=== PATIENT | female | born 1965 | race Caucasian/White ===

== ENCOUNTER 2017-02-26 06:33 | Emergency (ER) | payer MEDICAID ==
[~2017-02-26] VITALS: Ht 157.5 cm; Wt 73.0 kg
[~2017-02-26 06:33] MED LIST: ASPI-986 PO; CLOP75TA16 PO; DULO60CA44 PO; GABA-531 PO; INSU100C6 SQ; METO-539 PO; ZOLP10TA2 PO
[2017-02-26 06:37] VITALS: BP 123/57
[2017-02-26] MEDS ORDERED: SODIUM CHLORIDE 0.9% 1,000 ML IV ONE (07:05)
== END 2017-02-26 09:12 | disposition left against medical advice (07) ==
LOC: ER 06:33
DX: E11.65 Type 2 diabetes mellitus with hyperglycemia (principal); I11.9 Hypertensive heart disease without heart failure; F17.200 Nicotine dependence, unspecified, uncomplicated; Z98.61 Coronary angioplasty status; Z79.4 Long term (current) use of insulin; Z79.82 Long term (current) use of aspirin
CPT/HCPCS: 82962; 99283; J7030

== ENCOUNTER 2017-03-05 22:22 | Inpatient (IN) | payer MEDICAID ==
[~2017-03-05] VITALS: Ht 157.5 cm; Wt 83.9 kg
[2017-03-06] MEDS ORDERED: ALBUTEROL (0.083%) 2.5MG/3ML NEB HHN STA (00:47)
[2017-03-06] MEDS ORDERED: KETOROLAC 30MG/ML VIAL IV STA (00:47)
[2017-03-06] MEDS ORDERED: IPRATROPIUM BROMIDE (0.02%) 0.5MG/2.5ML NEB HHN STA (00:47)
[2017-03-06 01:12] LABS: BASOPHILS % 0.2 % (0.0-2.0); EOSINOPHILS % 3.4 % (0.0-5.0); HEMATOCRIT. 41.4 % (36.0-48.0); HEMOGLOBIN. 13.5 g/dL (12.0-16.0); LYMPHOCYTES % 25.2 % (20.0-50.0); MEAN CORPUSCULAR HEMOGLOBIN 28.8 pg (28.0-32.0); MEAN CORPUSCULAR VOLUME 88.2 fL (81.0-99.0); MEAN PLATELET VOLUME 8.3 fl (7.4-10.4); MONOCYTES % 9.5 % (2.0-8.0); NEUTROPHILS % 61.7 % (40.0-76.0); PLATELET 513 x1000/uL (130-400); RED CELL DISTRIBUTION WIDTH 13.6 % (11.6-14.6)
[2017-03-06] MEDS ORDERED: CEFTRIAXONE 1 G PREMIX 50 ML IV ONE (01:15)
[2017-03-06 01:16] LABS: INR 1.1; PROTHROMBIN TIME 11.1 sec (9.4-11.6)
[2017-03-06 01:25] LABS: CARBON DIOXIDE 28 mEq/L (21-32); CHLORIDE 102 mEq/L (98-107); TROPONIN I < 0.02 ng/mL (0.00-0.04)
[2017-03-06] MEDS: AZITHROMYCIN 500 MG in DEXT 5% WATER 250 ML IV SCH ×2 (01:43→04:00)
[2017-03-06 08:06] LABS: CLARITY URINE CLEAR (CLEAR); COLOR URINE YELLOW (YELLOW); KETONES URINE NEGATIVE (NEGATIVE); LEUKOCYTE ESTERASE URINE TRACE (NEGATIVE); NITRITE URINE NEGATIVE (NEGATIVE); OCCULT BLOOD URINE TRACE (NEGATIVE); PROTEIN URINE NEGATIVE (NEGATIVE); SPECIFIC GRAVITY URINE 1.017 (1.005-1.030); UROBILINOGEN URINE 0.2 E.U./dL (0.2-1.0)
[2017-03-06] MEDS ORDERED: ONDANSETRON HCL 4MG/2ML VIAL IV PRN (11:30)
[2017-03-06] MEDS ORDERED: CLONIDINE 0.1MG TABLET PO PRN (11:30)
[2017-03-06] MEDS ORDERED: IPRATROPIUM/ALBUTEROL 0.5-3(2.5)MG/3ML NEB INH PRN (11:30)
[2017-03-06] MEDS ORDERED: DOCUSATE SODIUM 100MG CAPSULE PO PRN (11:30)
[2017-03-06] MEDS ORDERED: MAGNESIUM/ALUMINUM HYDROXIDE/SIMETHICONE 30ML UDC PO PRN (11:30)
[2017-03-06] MEDS ORDERED: IOHEXOL-300 100 ML BOTTLE ONE (14:16)
[2017-03-06 14:53] LABS: CARBON DIOXIDE 29 mEq/L (21-32); CHLORIDE 102 mEq/L (98-107); CREATINE KINASE 74 IU/L (26-192); CREATINE KINASE MB FRACTION 2.1 ng/mL (0.5-3.6); TROPONIN I < 0.02 ng/mL (0.00-0.04)
[2017-03-06 15:25] VITALS: BP 119/68
[2017-03-06] MEDS ORDERED: DEXTROSE 50% WATER 50ML SYRINGE IV PRN ×2 (15:30→19:45)
[2017-03-06 16:00] VITALS: BP 119/68
[2017-03-06] MEDS ORDERED: ENOXAPARIN 40MG/0.4ML SYR SUBCUT SCH (16:00)
[2017-03-06] MEDS: AMLODIPINE 2.5MG TABLET PO SCH ×2 (16:00→21:00)
[2017-03-06] MEDS ORDERED: ROCEPHIN IVPB XX SCH (16:15)
[2017-03-06] MEDS ORDERED: BLOOD SUGAR DIAGNOSTIC STRIP TEST SCH (17:00)
[2017-03-06] MEDS ORDERED: INSULIN LISPRO 100 UNITS/ML SUBCUT SCH (17:40)
[2017-03-06] MEDS: ACETAMINOPHEN 325MG TABLET PO PRN (18:28)
[2017-03-06] MEDS ORDERED: INSULIN LISPRO 100 UNITS/ML SUBCUT NR (18:45)
[2017-03-06] MEDS ORDERED: INSULIN REGULAR (HUMULIN R) 300UNITS/3ML SUBCUT NR (19:00)
[2017-03-06 20:00] VITALS: BP 98/67
[2017-03-06] MEDS: BLOOD SUGAR DIAGNOSTIC STRIP TEST SCH (20:35)
[2017-03-06] MEDS: ZOLPIDEM TARTRATE 5MG TABLET PO SCH (22:09)
[2017-03-06] MEDS: INSULIN LISPRO 100 UNITS/ML SUBCUT SCH (22:11)
[2017-03-06 23:31] LABS: CREATINE KINASE 94 IU/L (26-192); CREATINE KINASE MB FRACTION 2.5 ng/mL (0.5-3.6); TROPONIN I < 0.02 ng/mL (0.00-0.04)
[2017-03-07] VITALS: BP 124/59
[2017-03-07 04:00] VITALS: BP 123/67
[2017-03-07] MEDS: AZITHROMYCIN 500 MG TABLET PO SCH (05:38)
[2017-03-07] MEDS: HYDROCODONE/ACETAMINOPHEN 5/325MG TABLET PO PRN ×3 (05:48→17:09)
[2017-03-07] MEDS: BLOOD SUGAR DIAGNOSTIC STRIP TEST SCH ×4 (06:15→21:34)
[2017-03-07] MEDS: INSULIN LISPRO 100 UNITS/ML SUBCUT SCH ×4 (06:36→21:36)
[2017-03-07 07:15] LABS: BASOPHILS % 1.1 % (0.0-2.0); EOSINOPHILS % 6.3 % (0.0-5.0); HEMATOCRIT. 39.6 % (36.0-48.0); HEMOGLOBIN. 13.2 g/dL (12.0-16.0); LYMPHOCYTES % 25.3 % (20.0-50.0); MEAN CORPUSCULAR HEMOGLOBIN 29.2 pg (28.0-32.0); MEAN CORPUSCULAR VOLUME 87.9 fL (81.0-99.0); MEAN PLATELET VOLUME 8.6 fl (7.4-10.4); MONOCYTES % 8.3 % (2.0-8.0); PLATELET 462 x1000/uL (130-400); RED BLOOD CELL COUNT 4.51 mill/uL (4.2-5.4); RED CELL DISTRIBUTION WIDTH 13.4 % (11.6-14.6)
[2017-03-07 08:00] VITALS: BP 128/70
[2017-03-07 08:38] LABS: HDL CHOLESTEROL 27 mg/dL (40-59); LDL CHOLESTEROL 89 mg/dL (5-100)
[2017-03-07] MEDS: ACETAMINOPHEN 325MG TABLET PO PRN (08:49)
[2017-03-07] MEDS: AMLODIPINE 2.5MG TABLET PO SCH ×2 (08:50→21:34)
[2017-03-07] MEDS ORDERED: ASPIRIN 81MG EC TABLET PO SCH (09:00)
[2017-03-07] MEDS ORDERED: CEFTRIAXONE 2 G in DEXTROSE 5% WATER 50 ML IV SCH (09:00)
[2017-03-07 11:03] LABS: *AMPHETAMINES SCREEN URINE NEGATIVE (NEGATIVE); *BARBITURATES SCREEN URINE NEGATIVE (NEGATIVE); *BENZODIAZEPINES SCREEN URINE NEGATIVE (NEGATIVE); *COCAINE SCREEN URINE NEGATIVE (NEGATIVE); CANNABINOID URINE SCREEN NEGATIVE (NEGATIVE); METHADONE URINE SCREEN NEGATIVE (NEGATIVE); OPIATES URINE SCREEN NEGATIVE (NEGATIVE); PHENCYCLIDINE URINE SCREEN NEGATIVE (NEGATIVE)
[2017-03-07 12:00] VITALS: BP 145/75
[2017-03-07] MEDS ORDERED: IPRATROPIUM/ALBUTEROL 0.5-3(2.5)MG/3ML NEB HHN PRN (13:15)
[2017-03-07 13:48] LABS: BG BASE EXCESS 1.8 mmol/L (-2.0-2.0); BG CARBOXYHEMOGLOBIN 1.2 % (0.5-1.5); BG DEOXYHEMOGLOBIN 4.6 % (0.0-5.0); BG FRACTION INSPIRED OXYGEN 21; BG HCO3 ACT 25.6 mmol/L (22.0-26.0); BG METHEMOGLOBIN 0.1 % (0.0-1.5); BG OXYGEN SATURATION 95.3 % (92.0-98.5); BG OXYHEMOGLOBIN 94.1 % (94.0-97.0); BG PCO2 37.4 mmHg (35.0-45.0); BG PH 7.453 (7.350-7.450); BG PO2 75.5 mmHg (75.0-100.0); BG SAMPLE SITE LEFT BRACHIAL; BG TOTAL HEMOGLOBIN 13.6 g/dL (12.0-18.0); BG VENT MODE ROOM AIR
[2017-03-07] MEDS: NICOTINE 14MG PATCH TD SCH (15:00)
[2017-03-07 16:00] VITALS: BP 126/67
[2017-03-07 20:00] VITALS: BP 135/71
[2017-03-07] MEDS ORDERED: INSULIN REGULAR (HUMULIN R) 300UNITS/3ML SUBCUT ONE (21:15)
[2017-03-07] MEDS ORDERED: INSULIN LISPRO 100 UNITS/ML SUBCUT SCH (21:24)
[2017-03-07] MEDS: ZOLPIDEM TARTRATE 5MG TABLET PO SCH (21:34)
[2017-03-07] MEDS: IPRATROPIUM/ALBUTEROL 0.5-3(2.5)MG/3ML NEB INH SCH (21:43)
[2017-03-07] MEDS ORDERED: INSULIN GLARGINE UD 100 UNITS/ML SYR SUBCUT SCH (22:00)
[2017-03-07] MEDS ORDERED: INSULIN DETEMIR UD 100 UNITS/ML SYR SUBCUT SCH (22:00)
[2017-03-08] VITALS: BP 153/83
[2017-03-08] MEDS: ACETAMINOPHEN 325MG TABLET PO PRN (02:09)
[2017-03-08] MEDS: IPRATROPIUM/ALBUTEROL 0.5-3(2.5)MG/3ML NEB INH SCH ×3 (03:01→12:58)
[2017-03-08 04:00] VITALS: BP 124/63
[2017-03-08] MEDS: BLOOD SUGAR DIAGNOSTIC STRIP TEST SCH ×2 (06:35→13:00)
[2017-03-08] MEDS: AZITHROMYCIN 500 MG TABLET PO SCH (06:35)
[2017-03-08 07:01] LABS: BASOPHILS % 0.8 % (0.0-2.0); EOSINOPHILS % 5.1 % (0.0-5.0); HEMATOCRIT. 39.3 % (36.0-48.0); LYMPHOCYTES % 28.8 % (20.0-50.0); MEAN CORPUSCULAR HEMOGLOBIN 29.1 pg (28.0-32.0); MEAN CORPUSCULAR VOLUME 88.1 fL (81.0-99.0); MEAN PLATELET VOLUME 8.7 fl (7.4-10.4); MONOCYTES % 6.9 % (2.0-8.0); NEUTROPHILS % 58.4 % (40.0-76.0); PLATELET 449 x1000/uL (130-400); RED BLOOD CELL COUNT 4.46 mill/uL (4.2-5.4); RED CELL DISTRIBUTION WIDTH 13.4 % (11.6-14.6)
[2017-03-08] MEDS: INSULIN LISPRO 100 UNITS/ML SUBCUT SCH ×2 (07:04→13:16)
[2017-03-08 07:32] LABS: CHLORIDE 97 mEq/L (98-107)
[2017-03-08 08:00] VITALS: BP 125/71
[2017-03-08] MEDS ORDERED: CEFTRIAXONE 2 G in SODIUM CHLORIDE 0.9% 50 ML IV SCH (08:00)
[2017-03-08] MEDS ORDERED: CEFTRIAXONE 2 G in DEXTROSE 5% WATER 50 ML IV SCH (08:00)
[2017-03-08 08:05] LABS: CARBON DIOXIDE 26 mEq/L (21-32)
[2017-03-08] MEDS: HYDROCODONE/ACETAMINOPHEN 5/325MG TABLET PO PRN (08:33)
[2017-03-08] MEDS: AMLODIPINE 2.5MG TABLET PO SCH (08:33)
[2017-03-08] MEDS: NICOTINE 14MG PATCH TD SCH ×2 (08:35→17:50)
[2017-03-08] MEDS ORDERED: INSULIN GLARGINE UD 100 UNITS/ML SYR SUBCUT NR (11:00)
[2017-03-08 12:00] VITALS: BP 137/66
[2017-03-08] MEDS ORDERED: LORAZEPAM 2MG/ML CPJ IV NR (12:00)
[2017-03-08] MEDS ORDERED: GADOBENATE DIMEGLUMINE 529 MG/ML 10ML IV ONE (14:56)
[2017-03-08] MEDS ORDERED: VANCOMYCIN 2,000 MG in DEXT 5% WATER 500 ML IV NR (16:00)
[2017-03-08] MEDS ORDERED: PIPERACILLIN/TAZ 3.375G PREMIX 50 ML IV SCH (18:00)
[2017-03-08] MEDS ORDERED: OXYMETAZOLINE HCL NASAL SPRAY 15ML BOTHNSTRLS SCH (21:00)
[2017-03-08] MEDS ORDERED: INSULIN GLARGINE UD 100 UNITS/ML SYR SUBCUT SCH (22:00)
[2017-03-09] MEDS ORDERED: VANCOMYCIN 1 G PREMIX 200 ML IV SCH ×2 (04:00)
[2017-03-09 13:15] LABS: ALPHA FETOPROTEIN TUMOR MARKER 1.2 ng/mL (0.0-8.3); CANCER ANTIGEN 125 16.4 U/mL (0.0-38.1)
== END 2017-03-08 17:30 | disposition left against medical advice (07) | DRG 720 ==
LOC: ER 22:22 → 8WST 03-06 06:56 → ENRESERV 03-06 14:03
PROVIDERS: ADMIT Internal Medicine; ATTEND Internal Medicine
DX: A41.9 Sepsis, unspecified organism (principal); J18.9 Pneumonia, unspecified organism; C78.02 Secondary malignant neoplasm of left lung; E46 Unspecified protein-calorie malnutrition; I11.9 Hypertensive heart disease without heart failure; I42.9 Cardiomyopathy, unspecified; C34.32 Malignant neoplasm of lower lobe, left bronchus or lung; J84.10 Pulmonary fibrosis, unspecified; K80.20 Calculus of gallbladder without cholecystitis without obstruction; J98.01 Acute bronchospasm; I25.10 Atherosclerotic heart disease of native coronary artery without angina pectoris; E11.9 Type 2 diabetes mellitus without complications; E11.65 Type 2 diabetes mellitus with hyperglycemia; E66.9 Obesity, unspecified; E78.00 Pure hypercholesterolemia, unspecified; E78.5 Hyperlipidemia, unspecified; F17.210 Nicotine dependence, cigarettes, uncomplicated; F31.9 Bipolar disorder, unspecified; G47.00 Insomnia, unspecified; K57.90 Diverticulosis of intestine, part unspecified, without perforation or abscess without bleeding; F12.90 Cannabis use, unspecified, uncomplicated; I16.0 Hypertensive urgency; K76.0 Fatty (change of) liver, not elsewhere classified; K82.8 Other specified diseases of gallbladder; N32.89 Other specified disorders of bladder; Z79.82 Long term (current) use of aspirin; Z79.899 Other long term (current) drug therapy; Z82.49 Family history of ischemic heart disease and other diseases of the circulatory system; Z95.5 Presence of coronary angioplasty implant and graft; Z68.33 Body mass index [BMI] 33.0-33.9, adult
CPT/HCPCS: 36415; 36600; 70553; 71045; 71260; 74176; 80048; 80053; 80061; 80305; 81001; 82105; 82375; 82378; 82550; 82553; 82805; 82962; 83036; 83605; 83735; 83880; 84443; 84484; 85025; 85610; 86300; 86301; 86304; 87040; 87070; 87804; 93005; 93306; 93970; 94640; 94664; 96365; 96366; 96368; 96375; 99285; A9577; J0456; J0696; J1650; J1815; J1885; J2060; J2543; J3370; J7040; J7060; J7620; Q9967

== ENCOUNTER 2017-03-14 11:48 | Emergency (ER) | payer MEDICAID ==
[~2017-03-14] VITALS: Ht 157.5 cm; Wt 82.0 kg
[2017-03-14 14:41] VITALS: BP 158/88
== END 2017-03-14 14:46 | disposition home or self-care (01) ==
LOC: ER 12:28
DX: C34.90 Malignant neoplasm of unspecified part of unspecified bronchus or lung (principal); F31.9 Bipolar disorder, unspecified; E11.9 Type 2 diabetes mellitus without complications; E78.00 Pure hypercholesterolemia, unspecified; I25.2 Old myocardial infarction; F17.200 Nicotine dependence, unspecified, uncomplicated; Z79.4 Long term (current) use of insulin; Z79.82 Long term (current) use of aspirin; Z95.820 Peripheral vascular angioplasty status with implants and grafts
CPT/HCPCS: 99281